=== PATIENT | female | born 1955 | race Hispanic/Latino ===

== ENCOUNTER 2018-04-04 08:48 | Emergency (ER) | payer BC ==
[2018-04-04 08:49] VITALS: BMI 28.2
[2018-04-04 08:52] VITALS: RESP 18; O2SAT 100
[2018-04-04] MEDS ORDERED: Lidocaine 1% Inj (20ml) IJ STA (09:21)
[2018-04-04] MEDS ORDERED: TDAP Vaccine 0.5 mL Syr IM ONE (09:21)
--- NOTE | 2018-04-04 09:21 | ED PDOC ---
Arrival/HPI - General Chief Complaint: Abnormal Skin Integrity Time Seen by Provider: 04/04/18 09:07 Historian: Patient - History of Present Illness Narrative History of Present Illness (Text): 04/04/18 09:17 62 y/o female, no significant pmh, nkda, post menopausal, last tetanus over 10 years ago, c/o rt. hand 5th digiti laceration x 2 hours. Pt. stated that she accidentally cut by the tile while going down the stair, was bleeding and bleeding controlled now, no foreign body sensation, no difficulty bending or extending the rt. hand 5th digit, no numbness or tingling, no other medical or psychological complaints. Past Medical History - Provider Review Nursing Documentation Reviewed: Yes - Reproductive Menopause: Yes - Psychiatric Hx Depression: No Hx Emotional Abuse: No Hx Physical Abuse: No Hx Substance Use: No - Surgical History Other/Comment: Left foot Sx - Suicidal Assessment Feels Threatened In Home Enviroment: No Family/Social History - Physician Review Nursing Documentation Reviewed: Yes Family/Social History: Unknown Family HX Smoking Status: Never Smoked Hx Alcohol Use: No Hx Substance Use: No Hx Substance Use Treatment: No Allergies/Home Meds Allergies/Adverse Reactions: Allergies No Known Allergies Allergy (Verified 04/04/18 08:53) Review of Systems - Review of Systems Constitutional: absent: Fatigue, Fevers Eyes: absent: Vision Changes ENT: absent: Hearing Changes Respiratory: absent: SOB, Cough Cardiovascular: absent: Chest Pain Gastrointestinal: absent: Abdominal Pain, Nausea, Vomiting Skin: Laceration. absent: Rash, Pruritis Neurological: absent: Headache, Dizziness Physical Exam Vital Signs Reviewed: Yes Vital Signs Temp Pulse Resp BP Pulse Ox 04/04/18 08:51 98.1 F 72 18 145/96 H 100 04/04/18 08:50 98.1 F 71 18 145/96 H 100 Temperature: Afebrile Blood Pressure: Normal Pulse: Regular Respiratory Rate: Normal Appearance: Positive for: Well-Appearing, Non-Toxic, Comfortable Pain Distress: Mild Mental Status: Positive for: Alert and Oriented X 3 - Systems Exam Head: Present: Atraumatic, Normocephalic Pupils: Present: PERRL Extroacular Muscles: Present: EOMI Conjunctiva: Present: Normal Mouth: Present: Moist Mucous Membranes Neck: Present: Normal Range of Motion Respiratory/Chest: Present: Clear to Auscultation, Good Air Exchange. No: Respiratory Distress, Accessory Muscle Use Cardiovascular: Present: Regular Rate and Rhythm, Normal S1, S2. No: Murmurs Abdomen: No: Tenderness, Distention, Peritoneal Signs Upper Extremity: Present: Normal Inspection, Other (Rt. hand 5th digit: dorsal aspect of the middle phalanx of the 5th digit perperndicular with visible approx. 2cm laceration superficially with no active bleeding with full range of movement including flexion and extension of the MCPJ/PIPJ/DIPJ with full sensation intact, motor 5/5, +radial pulse, capillary refill< 2 seconds, neurovascular intact, no visible foreign bodies on the wound. ). No: Cyanosis, Edema Lower Extremity: Present: Normal Inspection. No: Edema Neurological: Present: GCS=15, CN II-XII Intact, Speech Normal Skin: Present: Warm, Dry, Normal Color. No: Rashes Psychiatric: Present: Alert, Oriented x 3, Normal Insight, Normal Concentration Medical Decision Making ED Course and Treatment: 04/04/18 09:28 -tdap -sensation intact, motor 5/5, wound irrigated with 1000cc of normal saline, clean with betadine, 1% lidocaine injected locally with 0.5cc, wound explored with no visible tendon injury or foreign bodies, sterile procedure, 5-0 nylon made 7 sutures, hemostasis obtained, bacitracin applied, gauze dressing, sensation intact, motor 5/5, total procedure time is 20 minutes. 04/04/18 09:59 -Discharge home with keflex, motrin, keep the dressing dry and clean for 2 days , sutures need to be removed by day 12, leave the wound dry and clean at night for good air ventilation, avoid strenuous exercise or activity, follow up with your own pmd and hand specialist within 2 days, return to the ER for any new or worsening signs or symptoms. 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 Disposition/Present on Arrival - Present on Arrival Any Indicators Present on Arrival: No History of DVT/PE: No History of Uncontrolled Diabetes: No Urinary Catheter: No History of Decub. Ulcer: No History Surgical Site Infection Following: None - Disposition Have Diagnosis and Disposition been Completed?: Yes Diagnosis: Laceration Disposition: HOME/ ROUTINE Disposition Time: 09:59 Patient Plan: Discharge Condition: GOOD Additional Instructions: -Discharge home with keflex, motrin, keep the dressing dry and clean for 2 days , sutures need to be removed by day 12, leave the wound dry and clean at night for good air ventilation, avoid strenuous exercise or activity, follow up with your own pmd and hand specialist within 2 days, return to the ER for any new or worsening signs or symptoms. Prescriptions: Bacitracin Ointment [Bacitracin] 1 appful TOP BID #15 g Cephalexin [cephalexin] 500 mg PO TID #21 cap Referrals: Yarelis Abel MD [Staff Provider] - Follow up with primary Forms: WORK NOTE
[2018-04-04 10:15] VITALS: BP 111/67; PULSE 62; TEMP 97.8
== END 2018-04-04 10:03 | disposition home or self-care (01) ==
LOC: ED 08:48
DX: S61.216A Laceration without foreign body of right little finger without damage to nail, initial encounter (principal); W45.8XXA Other foreign body or object entering through skin, initial encounter; Y92.9 Unspecified place or not applicable; Z23 Encounter for immunization